=== PATIENT | male | born 1965 | race Caucasian/White ===

== ENCOUNTER 2022-01-22 08:09 | Outpatient (CLI) | payer OTHER, SELFPAY ==
--- NOTE | ~2022-01-22 | XR_ITS ---
EXAMINATION: XR barium swallow DATE: 01/22/2022 09:01 INDICATION: Dysphagia TECHNIQUE: The patient drank thick barium, gas-producing crystals, and thin barium. Fluoroscopy of th e hypopharynx and esophagus was performed. Fluoroscopy exposure time was 1.8 minutes. The DAP for thi s procedure was 9.3 Gycm2. COMPARISON: None. FINDINGS: There is no mass or stricture of the esophagus. Prominent cricopharyngeus contraction is no [place]. Esophageal motility is normal. There is a small sliding hiatal hernia. There was no gastroesopha geal reflux with provocative maneuvers. IMPRESSION: 1. Prominent cricopharyngeus contraction. 2. Small sliding hiatal hernia. Reviewed, dictated and finalized at location B. [facility]
== END 2022-01-22 08:10 | disposition home or self-care (01) ==
LOC: CHSIMG 08:12
PROVIDERS: PCP Internal Medicine; Visit Provider Internal Medicine
DX: R13.10 Dysphagia, unspecified (principal); I48.91 Unspecified atrial fibrillation
CPT/HCPCS: 74220